=== PATIENT | female | born 1955 | race Hispanic/Latino ===

== ENCOUNTER 2018-12-28 05:38 | Day surgery (SDC) | payer BC ==
[2018-12-28] VITALS (12 sets, daily range): BP systolic 117–144; BP diastolic 61–75
[~2018-12-28] VITALS: Ht 154.9 cm; Wt 70.8 kg
[~2018-12-28 05:38] MED LIST: SODIUM CHLORIDE 0.9% 1000ML 1,000 ML IV ONE
[2018-12-28] MEDS ORDERED: LOSA50TA64 PO (08:40)
[2018-12-28] MEDS ORDERED: VITAD50000 PO (08:40)
[2018-12-28] MEDS ORDERED: INDOMETHACIN 50 MG SUPP.RECT RC SCH (09:30)
[2018-12-28] MEDS ORDERED: IOHEXOL-350 50ML VIAL IV ONE (09:54)
[2018-12-28] MEDS ORDERED: MIDAZOLAM HCL 1 MG/ML 2ML VIAL ONE (10:09)
[2018-12-28] MEDS ORDERED: PROPOFOL 10 MG/ML 20ML VIAL IV ONE (10:10)
[2018-12-28] MEDS ORDERED: SUCCINYLCHOLINE CHLORIDE 20 MG/ML 10 ML VIAL ONE (10:53)
== END 2018-12-28 13:00 | disposition home or self-care (01) ==
LOC: DAH 05:38 → ENDO 05:38
PROVIDERS: ATTEND Internal Medicine
DX: K80.50 Calculus of bile duct without cholangitis or cholecystitis without obstruction (principal); I10 Essential (primary) hypertension; Z88.0 Allergy status to penicillin; Z88.8 Allergy status to other drugs, medicaments and biological substances; Z79.899 Other long term (current) drug therapy; Z98.890 Other specified postprocedural states; Z90.49 Acquired absence of other specified parts of digestive tract; E55.9 Vitamin D deficiency, unspecified
CPT/HCPCS: 43262; 43264; 74330; A4606; C1769; C1773; J0330; J2250; J2704; J7030; Q9967